=== PATIENT | male | born 2000 | race Caucasian/White ===

== ENCOUNTER 2024-04-26 18:21 | Emergency (ER) | payer OTHER, SELFPAY ==
[2024-04-26 18:53] VITALS: BP 120/63
[2024-04-26 19:37] LABS: % Basophils 0.5 % (0-2); % Eosinophils 0.3 % (0-6); % Immature Granulocytes 0.3 % (0-0.5); % Lymphocytes 10.4 % (20.5-51.1); % Monocytes 4.6 % (1.7-9.3); % Neutrophils 83.9 % (42.2-75.2); Absolute Basophils 0.1 10^3/uL (0-0.2); Absolute Eosinophils 0.1 10^3/uL (0-0.7); Absolute Immature Granulocytes 0.1 10^3/uL (0-0.05); Absolute Lymphocytes 1.6 10^3/uL (1.2-3.4); Absolute Monocytes 0.7 10^3/uL (0.1-0.6); Absolute Neutrophils 12.5 10^3/uL (1.4-6.5); Hematocrit 43.4 % (39.0-52.0); Hemoglobin 14.9 g/dL (13.0-18.0); Mean Corp Hgb Conc. 34.3 g/dL (33.0-37.0); Mean Corpuscular Hgb 29.3 pg (27.0-31.0); Mean Corpuscular Volume 85.4 fL (80.0-94.0); Mean Platelet Volume 10.6 fL (7.4-10.4); Nucleated Red Blood Cells % 0 % (-); Platelet Count 275 10^3/uL (130-400); Red Blood Cell Count 5.08 10^6/uL (4.70-6.10); White Blood Cell Count 14.9 10^3/uL (4.8-10.8)
[2024-04-26 19:51] LABS: ALT (SGPT) 45 U/L (0-50); AST (SGOT) 44 U/L (17-59); Albumin 4.9 g/dl (3.5-5.0); Alkaline Phosphatase 59 U/L (38-126); Blood Urea Nitrogen 15 mg/dl (9-20); Calcium 9.5 mg/dl (8.4-10.2); Carbon Dioxide 30 mmol/L (22-30); Chloride 98 mmol/L (98-107); Glucose 107 mg/dl (70-99); Lipase 60 U/L (23-300); Potassium 4.1 mmol/L (3.5-5.1); Sodium 138 mmol/L (135-145); Total Bilirubin 0.4 mg/dl (0.2-1.3); Total Protein 7.7 g/dl (6.3-8.2); eGFR > 60.00
[2024-04-26 22:00] VITALS: BP 108/68
[2024-04-26 23:30] VITALS: BMI 28.2
[2024-04-26 23:31] VITALS: BP 105/65
[2024-04-26] MEDS: TYLENOL 1000 MG PO (23:36)
[2024-04-27 00:53] VITALS: BP 108/64
--- NOTE | 2024-04-27 01:11 | ED.GENMED ---
History of Present Illness
General
Chief Complaint: Headache
Source: patient, spouse and family
Exam Limitations: none
Time Seen by Provider: 04/26/24 22:30
Nursing documentation reviewed up to this point in time: agreed with
History of Present Illness
History of Present Illness:
24-year-old male presenting to the emergency department with concerns of a severe headache after straining while having a bowel movement a few hours prior to arrival to the emergency department. Also had associated nausea and initial blurred vision
that is now resolved. Symptoms have improved since. Denies any chest pain shortness of breath no history of chronic medical conditions or blood thinners.
Review of Systems
Review of Systems
Allergies reviewed?: Yes
All Other Systems: ROS reviewed and negative except as documented in HPI and ROS
Phy Exam
Physical Exam
Physical Exam:
GENERAL: Alert , in no apparent distress
EYE: pupils equal and reactive
NECK: Supple, no significant adenopathy.
ENT: o/p clr, mmm.
CARDIAC: Regular rate and rhythm .
LUNGS: Clear breath sounds bilaterally, no acute respiratory distress, no wheezes/rales/rhonchi
ABDOMEN: Soft, without focal tenderness, no r/g, no cvat
NEUROLOGICAL: Alert and oriented, no focal neuro deficits 5 out of 5 upper and lower extremity strength normal sensation with palpating bilaterally normal finger-nose and ckic-xn-[id number] no pronator drift
SKIN: Warm and dry, skin intact.
MUSCULOSKELETAL: No edema, well perfused.
PSYCH: Normal and appropriate interaction.
Course
Orders/Labs/Results
Orders:
Orders
04/26/24 19:03
EKG [Electrocardiogram (*1)] Urgent
Reason for Study: Vertigo / Dizzy
EKG- Treatment ONCE
04/26/24 19:20
Complete Blood Count/With Diff Urgent
Comprehensive Metabolic Panel Urgent
Lipase Urgent
04/26/24 23:07
CT Head W/o Iv Contrast Urgent
Comment:
Reason For Exam: severe MORRISON
04/26/24 23:15
Acetaminophen [Tylenol] 1,000 mg PO NOW STA
Abnormal Lab Results
04/26/24
19:20
WBC 14.9 H 10^3/uL
(4.8-10.8)
MPV 10.6 H fL
(7.4-10.4)
Abs Immat Gran (auto) 0.1 H 10^3/uL
(0-0.05)
Absolute Neuts (auto) 12.5 H 10^3/uL
(1.4-6.5)
Absolute Monos (auto) 0.7 H 10^3/uL
(0.1-0.6)
Neutrophils % 83.9 H %
(42.2-75.2)
Lymphocytes % 10.4 L %
(20.5-51.1)
Glucose 107 H mg/dl
(70-99)
04/26/24 19:20
04/26/24 19:20
Vital Signs
Initial and Last Documented VS:
Initial Vital Signs
Temp Pulse Resp BP Pulse Ox
97.9 F 76 18 120/63 99
04/26/24 18:53 04/26/24 18:53 04/26/24 18:53 04/26/24 18:53 04/26/24 18:53
Last Documented Vital Signs
Temp Pulse Resp BP Pulse Ox
98.6 F 73 16 108/64 97
04/26/24 22:00 04/27/24 00:53 04/27/24 00:53 04/27/24 00:53 04/27/24 00:53
MDM/Problems Addressed
MDM/Problems Addressed:
24-year-old male presenting to the emergency department today with concerns of a headache after having a bowel movement. Had associated blurred vision initially which is since resolved. Also nausea. Symptoms been improving since. Symptoms have
been ongoing for a few hours prior to my assessment. CT scan was obtained that was normal. Bleed or life-threatening etiology seems very unlikely concerning symptoms are significantly improved he has normal neurologic evaluation no neck stiffness.
Otherwise patient stable for discharge return precautions given.
*Critical Care Note
Total Time (30-74mins, 75-104mins- exclusive of procedures): Not Applicable
ED Attending Note
-
Portions of this chart may have been created with voice recognition software.� Occasional wrong word or��sound alike� substitutions may have occurred due to the inherent limitations of voice recognition software.
Discharge Plan
Departure
Patient Disposition: Home (Routine Discharge)
Date of Disposition: 04/27/24
Time of Disposition: :13
Patient with high blood pressure during this ER visit?: No
Condition: Good
Covid-19: Not Applicable
Discharge Problem:
Headache
Instructions: Headache, Adult (DC)
Prescriptions:
No Action
No Current Medications
0
Referrals:
[facility], [Other]
Lm Noble DO [Family Provider] -
Activity Restrictions/Additional Instructions:
You came to the emergency department today with concerns of a headache. Here you had a reassuring assessment. Return for any worsening, new or concerning symptoms.
Interventions
Interventions:
*Risk Screen - Suicide Last Done: 04/26/24 18:53
*General Assessment Last Done: 04/26/24 23:30
*Neglect/Abuse Screening Last Done: 04/26/24 23:30
*ED COVID-19 Vaccine History Last Done: 04/26/24 18:53
ED- Neurological Assessment Last Done: 04/26/24 23:30
Discharge Date and Time
Print Language: CAMEROONIAN
== END 2024-04-27 01:26 | disposition home or self-care (01) ==
LOC: EMR 18:21
PROVIDERS: Emergency Medicine; EMERGENCY PHYSICIAN Student in an Organized Health Care Education/Training Program; FAMILY PHYSICIAN Family Medicine
DX: R51.9 Headache, unspecified (principal); R11.0 Nausea; H53.8 Other visual disturbances
CPT/HCPCS: 99284; 70450; 80053; 83690; 85025; 93005